=== PATIENT | male | born 1980 | race Caucasian/White ===

== ENCOUNTER 2019-07-08 20:27 | Emergency (ER) | payer BC ==
[2019-07-08] MEDS ORDERED: SODIUM CHLORIDE 0.9% 500 ML 500 ML IV STA (20:58)
[2019-07-08] MEDS ORDERED: METOCLOPRAMIDE 5 MG/ML 2 ML VIAL IVP STA (21:00)
[2019-07-08] MEDS ORDERED: HYDROmorphone 0.5 MG/0.5 ML SYRINGE IVP STA (21:05)
--- NOTE | 2019-07-08 21:18 | ED ---
General Adult HPI - General Chief complaint: Neuro Symptoms/Deficit Stated complaint: headaches Time Seen by Provider: 07/08/19 20:49 Source: patient, family, RN notes reviewed Mode of arrival: ambulatory Limitations: no limitations - History of Present Illness Initial comments: Chief complaint and history of present illness a 38-year-old male here with his . The patient has been having headache on and off for approximately 30 hours. He took Tylenol Motrin which helped relieve the discomfort yesterday. He also reports that he had a scotoma associated with the left eye yesterday which resolved. 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 Patient reports he mild nausea no vomiting. The headache is across the forehead. Minimal to no photophobia. Slight dizziness with movement. Headache returned today. The patient went to an urgent care had IV fluids Benadryl Toradol and Zofran which gave him some relief. Because headache started return he's come the emergency room for further evaluation. A CT of the brain with IV contrast will be perfo rmed. The patient does not have any evidence of meningismus or meningitis with neck flexion. - Related Data Home Medications Medication Instructions Recorded Confirmed No Known Home Medications 07/08/19 07/08/19 Allergies Allergy/AdvReac Type Severity Reaction Status Date / Time No Known Allergies Allergy Verified 07/08/19 21:11 Review of Systems ROS Statement: Those systems with pertinent positive or pertinent negative responses have been documented in the HPI. Review of system patient has frontal headache minimal to no photophobia mild nausea headache goes across the head with forehead. No gross neuro deficits complained of. He does report having had a scotoma yesterday which resolved on its own. All systems are reviewed. No past history of migraines or illnesses. No ALLERGIES. Family history noncontributory. ROS Other: All systems not noted in ROS Statement are negative. Past Medical History Past Medical History: No Reported History History of Any Multi-Drug Resistant Organisms: None Reported Past Surgical History: Tonsillectomy Past Psychological History: No Psychological Hx Reported Smoking Status: Never smoker Past Alcohol Use History: Occasional Past Drug Use History: None Reported General Exam - General Exam Comments Initial Comments: General: The patient is awake and alert, he has come the emergency room because of headache. The headache started yesterday lasted several hours and again this afternoon. Patient does not have a history of migraines. Eye: Pupils are equal, round and reactive to light, extra-ocular movements are intact; there is normal conjunctiva bilaterally. No signs of icterus. Ears, nose, mouth and throat: There are moist mucous membranes a Neck: The neck is supple, there is no tenderness, no meningismus no stiff neck with neck flexion. Cardiovascular: There is a regular rate and rhythm. No murmur, rub or gallop is appreciated. Respiratory: Lungs are clear to auscultation, respirations are non-labored, breath sounds are equal. No wheezes, stridor, rales, or rhonchi. Gastrointestinal: Mild nausea no vomiting No back pain Musculoskeletal: Discomfort to his legs Neurological: CN II-XII intact, There are no obvious motor or sensory deficits. Coordination appears grossly intact. Speech is normal. No focal or lateralizing findings she did describe scotoma occurred yesterday and resolved on its own Skin: Skin is warm and dry and no rashes or lesions are noted. Psychiatric: Cooperative, Limitations: no limitations Course Vital Signs 07/08/19 07/08/19 20:36 23:13 Temperature 99.0 F Pulse Rate 73 74 Respiratory 18 16 Rate Blood Pressure 134/87 109/60 O2 Sat by Pulse 100 98 Oximetry Medical Decision Making - Medical Decision Making Vital decision making; this is a 38-year-old male here with his . The patient had migrainous type headache with aura of scotoma yesterday. It recurred today. The patient come the emergency room for evaluation. Patient had lab work done all the normal limits including a normal CRP. Neurologically intact. The patient had a CAT scan of the brain with and without IV contrast and reported to be negative as well as reported by Dr. Ferrari The patient is headache free at this time. The plan the patient be advised to use Zofran for nausea and it is suggested that the patient obtain Excedrin for headaches. Also advised to talk to follow-up with a neurologist. 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 - Lab Data Result diagrams: 07/08/19 21:12 07/08/19 21:12 Lab Results 07/08/19 07/08/19 Range/Units 21:12 21:12 WBC 7.9 (3.8-10.6) k/uL RBC 4.90 (4.30-5.90) m/uL Hgb 14.6 (13.0-17.5) gm/dL Hct 43.8 (39.0-53.0) % MCV 89.3 (80.0-100.0) fL MCH 29.8 (25.0-35.0) pg MCHC 33.4 (31.0-37.0) g/dL RDW 15.4 (11.5-15.5) % Plt Count 187 (150-450) k/uL Neutrophils % 88 % Lymphocytes % 8 % Monocytes % 2 % Eosinophils % 1 % Basophils % 0 % Neutrophils # 7.0 (1.3-7.7) k/uL Lymphocytes # 0.7 L (1.0-4.8) k/uL Monocytes # 0.2 (0-1.0) k/uL Eosinophils # 0.1 (0-0.7) k/uL Basophils # 0.0 (0-0.2) k/uL Sodium 141 (137-145) mmol/L Potassium 4.1 (3.5-5.1) mmol/L Chloride 103 (98-107) mmol/L Carbon Dioxide 29 (22-30) mmol/L Anion Gap 9 mmol/L BUN 25 H (9-20) mg/dL Creatinine 1.04 (0.66-1.25) mg/dL Est GFR (CKD-EPI)AfAm >90 (>60 ml/min/1.73 sqM) Est GFR (CKD-EPI)NonAf >90 (>60 ml/min/1.73 sqM) Glucose 117 H (74-99) mg/dL Calcium 9.5 (8.4-10.2) mg/dL Total Bilirubin 1.3 (0.2-1.3) mg/dL AST 19 (17-59) U/L ALT 24 (21-72) U/L Alkaline Phosphatase 52 (38-126) U/L C-Reactive Protein <5.0 (<10.0) mg/L Total Protein 7.3 (6.3-8.2) g/dL Albumin 4.7 (3.5-5.0) g/dL Disposition Clinical Impression: Migraine with aura Disposition: HOME SELF-CARE Condition: Good Instructions (If sedation given, give patient instructions): Migraine Headache (ED) Additional Instructions: At the first sign of headache take 2 Excedrin, and Zofran. Gone to a cool dark room with the cold compress and relax. Follow-up with your family doctor and your neurologist. Is patient prescribed a controlled substance at d/c from ED?: No Referrals: Ricky Lin MD [Primary Care Provider] - 1-2 days Time of Disposition: 23:46
[2019-07-08 21:37] LABS: Basophils % (A) 0 %; Eosinophils # (A) 0.1 k/uL (0-0.7); Eosinophils % (A) 1 %; HCT 43.8 % (39.0-53.0); HGB 14.6 gm/dL (13.0-17.5); Lymphocytes # (A) 0.7 k/uL (1.0-4.8); Lymphocytes % (A) 8 %; MCH 29.8 pg (25.0-35.0); MCHC 33.4 g/dL (31.0-37.0); MCV 89.3 fL (80.0-100.0); Mean Platelet Volume 7.5; Monocytes # (A) 0.2 k/uL (0-1.0); Monocytes % (A) 2 %; Neutrophils % (A) 88 %; Platelet Count 187 k/uL (150-450); RDW 15.4 % (11.5-15.5); WBC 7.9 k/uL (3.8-10.6)
[2019-07-08 21:51] LABS: ALT 24 U/L (21-72); AST 19 U/L (17-59); African American GFR (CKD) >90 (>60 ml/min/1.73 sqM); Albumin 4.7 g/dL (3.5-5.0); Alkaline Phosphatase 52 U/L (38-126); Anion Gap 9 mmol/L; Blood Urea Nitrogen 25 mg/dL (9-20); C Reactive Protein <5.0 mg/L (<10.0); Calcium 9.5 mg/dL (8.4-10.2); Carbon Dioxide 29 mmol/L (22-30); Chloride 103 mmol/L (98-107); Glucose 117 mg/dL (74-99); Non-African American GFR(CKD) >90 (>60 ml/min/1.73 sqM); Potassium 4.1 mmol/L (3.5-5.1); Sodium 141 mmol/L (137-145); Total Bilirubin 1.3 mg/dL (0.2-1.3); Total Protein 7.3 g/dL (6.3-8.2)
--- NOTE | 2019-07-08 23:26 | CT ---
EXAMINATION TYPE: CT angio head DATE OF EXAM: 07/08/2019 9:48 PM COMPARISON: None HISTORY: Headache and dizziness CT DLP: 1899 mGycm Automated exposure control for dose reduction was used. TECHNIQUE: CT head without contrast. CTA of the head with 100 mL Isovue-370. Reformatted images obtained. FINDINGS: CT head: No acute intracranial hemorrhage. Mohr-white differentiation is maintained. Ventricular system is normal. Basilar cisterns are patent. No extra-axial fluid collections. Calvariu m is intact. Imaged paranasal sinuses and temporal bone structures are well aerated. CTA HEAD: Distal carotid arteries are patent. The imaged distal vertebral arteries and basilar arteries are pat ent. No significant stenosis of the anterior, middle, posterior cerebral arteries. No discernible ane urysm. IMPRESSION: NO ACUTE INTRACRANIAL PROCESS.
[2019-07-08 23:55] VITALS: BP 107/51; PULSE 80; RESP 18; TEMP 98.2
== END 2019-07-08 23:55 | disposition home or self-care (01) ==
LOC: EC 20:27
DX: G43.109 Migraine with aura, not intractable, without status migrainosus (principal)
CPT/HCPCS: 99284; 96374; 96375; 96361 ×3; 36415; 80053; 85025; 86140; 70496; J2765; J1170; Q9967

== ENCOUNTER 2020-06-13 19:12 | Emergency (ER) | payer BC ==
[2020-06-13 20:08] LABS: Basophils % (A) 1 %; Eosinophils # (A) 0.1 k/uL (0-0.7); Eosinophils % (A) 1 %; HGB 13.8 gm/dL (13.0-17.5); Lymphocytes # (A) 1.6 k/uL (1.0-4.8); Lymphocytes % (A) 30 %; MCH 29.4 pg (25.0-35.0); MCHC 32.9 g/dL (31.0-37.0); MCV 89.3 fL (80.0-100.0); Mean Platelet Volume 8.1; Monocytes # (A) 0.3 k/uL (0-1.0); Monocytes % (A) 6 %; Neutrophils # (A) 3.3 k/uL (1.3-7.7); Neutrophils % (A) 62 %; Platelet Count 169 k/uL (150-450); RBC 4.71 m/uL (4.30-5.90); RDW 13.1 % (11.5-15.5); WBC 5.3 k/uL (3.8-10.6)
[2020-06-13 20:13] VITALS: PULSE 62; RESP 18
--- NOTE | 2020-06-13 20:18 | XR ---
EXAMINATION TYPE: XR chest 2V DATE OF EXAM: 06/13/2020 COMPARISON: NONE HISTORY: Chest pain TECHNIQUE: 2 views FINDINGS: Heart and mediastinum are normal. Lungs are clear. Diaphragm is normal. Bony thorax appears normal. There are chest leads. IMPRESSION: Normal chest.
[2020-06-13 20:20] LABS: ALT 15 U/L (4-49); AST 26 U/L (17-59); African American GFR (CKD) >90 (>60 ml/min/1.73 sqM); Albumin 4.9 g/dL (3.5-5.0); Alkaline Phosphatase 47 U/L (38-126); Anion Gap 8 mmol/L; Blood Urea Nitrogen 17 mg/dL (9-20); C Reactive Protein <5.0 mg/L (<10.0); Calcium 9.9 mg/dL (8.4-10.2); Carbon Dioxide 29 mmol/L (22-30); Chloride 101 mmol/L (98-107); Creatine Kinase 158 U/L (55-170); Glucose 100 mg/dL (74-99); Magnesium 2.1 mg/dL (1.6-2.3); Non-African American GFR(CKD) 85 (>60 ml/min/1.73 sqM); Potassium 3.8 mmol/L (3.5-5.1); Sodium 138 mmol/L (137-145); Total Bilirubin 1.2 mg/dL (0.2-1.3); Total Protein 7.3 g/dL (6.3-8.2)
[2020-06-13 20:22] LABS: D-Dimer <0.17 mg/L FEU (<0.60); INR 1.2 (<1.2); Partial Thromboplastin Time 26.4 sec (22.0-30.0); Prothrombin Time 12.2 sec (9.0-12.0)
--- NOTE | 2020-06-13 20:40 | ED ---
Chest Pain HPI - General Chief Complaint: Chest Pain Stated Complaint: Chest pain Time Seen by Provider: 06/13/20 19:18 Source: patient, RN notes reviewed Mode of arrival: wheelchair Limitations: no limitations - History of Present Illness Initial Comments: This is a 39-year-old male with a benign past medical history states she's been having intermittent episodes of chest pain over the past several months he is in the process of getting a workup which included a stress echo this past week. He is scheduled to get a CT angiography performed but is not had it done yet. He's had episodes of exertional dyspnea with this is been getting worse over the past 2 days. He states he has some left-sided chest pain at this time very mild in severity no cough no phlegm production no risk factors for PE. No family history of heart disease at his age. No recent foreign travel no other modifying factors at this time. MD Complaint: chest pain - Related Data Home Medications Medication Instructions Recorded Confirmed Aspirin EC [Ecotrin Low Dose] 81 mg PO DAILY 06/13/20 06/13/20 Atorvastatin [Lipitor] 40 mg PO DAILY 06/13/20 06/13/20 Nitroglycerin Sl Tabs [Nitrostat] 0.4 mg SUBLINGUAL Q5M PRN 06/13/20 06/13/20 Allergies Allergy/AdvReac Type Severity Reaction Status Date / Time No Known Allergies Allergy Verified 06/13/20 20:18 Review of Systems ROS Statement: Those systems with pertinent positive or pertinent negative responses have been documented in the HPI. ROS Other: All systems not noted in ROS Statement are negative. EKG Findings - EKG Results: EKG: interpreted by RONNI, sinus rhythm (Neuro sinus rhythm a 6101 66 QRS duration 92 QT since QTC 390/392 nonspecific T-wave configuration) Past Medical History Past Medical History: No Reported History History of Any Multi-Drug Resistant Organisms: None Reported Past Surgical History: Tonsillectomy Past Psychological History: No Psychological Hx Reported Smoking Status: Never smoker Past Alcohol Use History: Occasional Past Drug Use History: None Reported General Exam - General Exam Comments Initial Comments: This is a well-developed well-nourished awake alert oriented 3 male Limitations: no limitations General appearance: alert, in no apparent distress Head exam: Present: atraumatic, normocephalic, normal inspection Eye exam: Present: normal appearance, PERRL, EOMI. Absent: scleral icterus, conjunctival injection, periorbital swelling ENT exam: Present: normal exam, mucous membranes moist Neck exam: Present: normal inspection. Absent: tenderness, meningismus, lymphadenopathy Respiratory exam: Present: normal lung sounds bilaterally. Absent: respiratory distress, wheezes, rales, rhonchi, stridor Cardiovascular Exam: Present: regular rate, normal rhythm, normal heart sounds. Absent: systolic murmur, diastolic murmur, rubs, gallop, clicks GI/Abdominal exam: Present: soft, normal bowel sounds. Absent: distended, tenderness, guarding, rebound, rigid Extremities exam: Present: normal inspection, full ROM, normal capillary refill. Absent: tenderness, pedal edema, joint swelling, calf tenderness Back exam: Present: normal inspection Neurological exam: Present: alert, oriented X3, CN II-XII intact Psychiatric exam: Present: normal affect, normal mood Skin exam: Present: warm, dry, intact, normal color. Absent: rash Course Vital Signs 06/13/20 06/13/20 19:13 20:13 Temperature 98.3 F Pulse Rate 64 62 Respiratory 16 18 Rate Blood Pressure 133/84 122/81 O2 Sat by Pulse 100 100 Oximetry Chest Pain MDM - MDM I did review the imaging and report no acute findings. After long discussion the patient and his father were present patient will be discharged he is a follow-up as planned with his doctors and return if any issues. He will be given copies of his EKG and lab work for today. The shortness of breath symptoms started after starting the current medication. Disposition Clinical Impression: Chest pain Disposition: HOME SELF-CARE Condition: Good Instructions (If sedation given, give patient instructions): Chest Pain (ED) Is patient prescribed a controlled substance at d/c from ED?: No Referrals: Ricky Lin MD [Primary Care Provider] - 1-2 days
[2020-06-13 21:35] VITALS: BP 119/78; TEMP 97.4
== END 2020-06-13 21:39 | disposition home or self-care (01) ==
LOC: EC 19:12
DX: R07.9 Chest pain, unspecified (principal); R06.02 Shortness of breath; Z79.82 Long term (current) use of aspirin; Z79.899 Other long term (current) drug therapy
CPT/HCPCS: 36415; 71046; 80053; 82550; 83735; 83880; 84484; 85025; 85379; 85610; 85730; 86140; 93005; 99285